=== PATIENT | female | born 1970 | race Caucasian/White ===

== ENCOUNTER → 2017-04-02 | Outpatient (CLI) | payer OTHER ==
[~2017-04-02] MED LIST: ALEVE220 M1 PO; APAP500; DOXYCYCLINE 10100 MG PO; IBUPROFEN 600600 M1 PO; INDERAL LA60 M1 PO; LORTUSS EX PO; MELATONIN3 MG PO; ONDANSETRON HCL4 M2 SUBLING; PREDNISONE 20 M20 M1 PO; PROAIR HFA8.5 GM; PROMETHAZINE/C118 ML; PROZAC20 MG PO; RANITIDINE 150150 M1 PO; SENOKOT-S1 TA1 PO; ZANTAC 150MG T150 MG PO; ZPAK; ZYRTEC10 MG PO
== END ==
LOC: RAD 13:22
DX: Z12.31 Encounter for screening mammogram for malignant neoplasm of breast (principal)

== ENCOUNTER 2017-05-08 13:55 | Emergency (ER) | payer OTHER ==
[~2017-05-08] VITALS: Ht 160 cm; Wt 97.5 kg
[2017-05-08] MEDS ORDERED: NAPROSYN500 MG PO (15:29)
[2017-05-08] MEDS ORDERED: HYDROCODONE-AP1 EAC6 PO (15:29)
[2017-05-08 15:37] VITALS: BP 122/78
[2017-11-07] MEDS ORDERED: MOBIC15 MG PO (14:59)
[2017-11-07] MEDS ORDERED: NAPROSYN500 MG PO (14:59)
[2017-11-07] MEDS ORDERED: PROZAC40 MG PO (14:59)
[2017-11-07] MEDS ORDERED: MULTI VITAMIN1 EACH PO (15:00)
[2017-11-07] MEDS ORDERED: VITAMIN D31000 UNI2 PO (15:00)
[2017-11-07] MEDS ORDERED: ESTRADIOL TRAN1 EAC2 TRANSDERM (15:00)
[2017-11-07] MEDS ORDERED: PRILOSEC 20 MG20 MG PO (15:01)
== END 2017-05-08 15:38 | disposition home or self-care (01) ==
LOC: ER 13:55
DX: K08.89 Other specified disorders of teeth and supporting structures (principal); F41.9 Anxiety disorder, unspecified; F32.9 Major depressive disorder, single episode, unspecified; K21.9 Gastro-esophageal reflux disease without esophagitis; Z98.890 Other specified postprocedural states

== ENCOUNTER → 2017-11-10 | Outpatient (CLI) | payer OTHER ==
[~2017-11-10] VITALS: Ht 162.6 cm; Wt 93.0 kg
[~2017-11-10] MED LIST changes: +ESTRADIOL TRAN1 EAC2 TRANSDERM; +HYDROCODONE-AP1 EAC6 PO; +MOBIC15 MG PO; +MULTI VITAMIN1 EACH PO; +NAPROSYN500 MG PO; +PRILOSEC 20 MG20 MG PO; +PROZAC40 MG PO; +VITAMIN D31000 UNI2 PO
--- NOTE | ~2017-11-10 | PATH ---
[facility] [place] [address] PATHOLOGY RPT PROCEDURE Name: MEGHANA TOWNSEND Room #: REG [facility] Betty.#: [id number] Admission: 11/10/17 Date of : 66 Discharge: Report #: [id number] Path Case #: [id number] [facility] Accession Number: [id number] . 01 Material submitted: . PART A: BX OF DUODENUM PART B: GASTRIC BX . 01 Clinical history: . Nausea, esophagitis . 02 Diagnosis: A. Bx of duodenum, rule out sprue: - Small bowel mucosa with intact villous architecture and no increase in intraepithelial lymphocytes. . B. Gastric biopsy, rule out H. pylori: - Mild chronic inactive gastritis. - An H. pylori immunostain is negative (block B1; appropriately reactive control). - Separate fragments of unremarkable small bowel mucosa. - See comment. LBQ/11/12/2017 . 02 Comment: B. Separate isolated fragments of small bowel mucosa are present. This small bowel mucosa likely represents contamination from part A duodenal biopsy. Clinical correlation is recommended. (MAP/db; 11/12/2017) . 02 Electronically signed: . Eduardo Skinner MD, Pathologist NPI- [id number] . 01 Gross description: . A. Received in formalin labeled "Meghana Townsend, BX of duodenum, rule out sprue," are 4 segments of bender soft tissue measuring 0.9 x 0.7 x 0.2 cm in aggregate dimensions and ranging from 0.2 to 0.3 cm in maximum dimension. The specimen is submitted entirely in cassette A1. . B. Received in formalin labeled "Meghana Townsend, gastric BX, rule out H. pylori," are 4 segments of bender soft tissue measuring 0.9 x 0.8 x 0.2 cm in aggregate dimensions and ranging from 0.2 to 0.4 cm in maximum dimension. The specimen is submitted entirely in cassette B1. (TSD; 11/10/2017) TOB/TOB . 02 [place] [address] PATHOLOGY RPT PROCEDURE Name: MEGHANA TOWNSEND Room #: REG [facility].#: [id number] Admission: 11/10/17 Date of : 66 Discharge: Report #: [id number] Path Case #: [id number] Pathologist provided ICD-10: K29.50, R11.0 . 02 CPT . 488766, 305168, Q75709 Performed at: [address] [facility], [place], [place] [id number] MD Maurizio Kimball MD Phone: [phone] Performed at: 02 [facility] [id number] [place] [id number] MD Edda Almanzar MD Phone: [phone]
--- NOTE | ~2017-11-10 | P ---
[facility] [place] [address] PROCEDURE REPORT Name: MEGHANA OJEDA Room #: REG [facility].#: [id number] Admission: 11/10/17 Attend Phys: Oswald Hunt Discharge: Date of : 66 Report #: [id number] THIS REPORT FOR: //name// CC: Carroll Main MD DATE OF SERVICE: 11/10/2017 PROCEDURE PERFORMED: Upper endoscopy with biopsies. HISTORY OF PRESENT ILLNESS: The patient is a 47-year-old female with complaints of chronic nausea. This was beginning in August 2017. She denies any new medications. She has had a previous gastric sleeve surgery in 2013. She takes Mobic on a regular basis, also on Prilosec daily 20 mg and Zantac p.r.n. She does have intermittent heartburn symptoms. She denies any dysphagia. She denies any blood in her stools. Plan is for upper endoscopy. PROCEDURE: The risks and benefits of the procedure were explained to the patient, those risks including, but not limited to bleeding, perforation, and the risk of sedation. She understood these risks and gave informed consent. Sedation was given using propofol per anesthesia. Next, using a standard Olympus upper endoscope, the scope was placed in the patient's mouth and advanced under direct vision through the esophagus, stomach and into the second portion of the duodenum. The larynx was normal in appearance. The upper and mid esophagus was normal. Grade B erosive esophagitis was noted at the GE junction. Upon entering the stomach, surgical changes consistent with gastric sleeve were noted. There were no ulcerations or erosions. The gastric antrum was normal. Biopsies were obtained to rule out H. pylori. The pylorus was normal and patent. The duodenal bulb, first and second portion were all normal. Biopsies were also obtained to rule out the possibility of celiac sprue. The scope was then withdrawn and the procedure terminated. The patient tolerated the procedure well. IMPRESSION: 1. Surgical changes consistent with gastric sleeve. 2. Grade B erosive esophagitis. 3. Otherwise, normal upper endoscopy. RECOMMENDATIONS: 1. Await biopsy results. 2. The patient has grade B erosive esophagitis despite being on daily Prilosec. We would recommend b.i.d. therapy. 3. If biopsies are negative and there is no improvement on b.i.d. PPI therapy, [address] [address] PROCEDURE REPORT Name: MEGHANA OJEDA Room #: REG [facility]al#: [id number] Admission: 11/10/17 Attend Phys: Oswald Hunt Discharge: Date of : 66 Report #: [id number] we discussed proceeding with a gastric emptying study. Thank you for allowing me to participate in her care. <ELECTRONICALLY SIGNED> By: Oswald Duran MD 11/14/17 0830 1008 1601 Oswald Duran MD /paulino
== END | disposition home or self-care (01) ==
LOC: GI 07:49
DX: K29.50 Unspecified chronic gastritis without bleeding (principal); K22.10 Ulcer of esophagus without bleeding; G43.909 Migraine, unspecified, not intractable, without status migrainosus; F32.9 Major depressive disorder, single episode, unspecified; K21.9 Gastro-esophageal reflux disease without esophagitis; Z98.890 Other specified postprocedural states; Z90.710 Acquired absence of both cervix and uterus; Z98.84 Bariatric surgery status; Z79.899 Other long term (current) drug therapy
CPT/HCPCS: 62110; 62900

== ENCOUNTER 2019-01-30 03:33 | Emergency (ER) | payer BC ==
[~2019-01-30] VITALS: Ht 162.6 cm; Wt 99.8 kg
[2019-01-30 04:08] LABS: ABSOLUTE NEUTROPHILS 2.5 thou/uL (1.4-8.2); BASOPHILS 0.8 % (0.0-2.0); EOSINOPHILS 4.8 % (0.0-3.0); HEMATOCRIT 41.7 % (37.0-47.0); HEMOGLOBIN 13.8 gm/dL (12.0-15.0); LYMPHOCYTES 36.8 % (24.0-44.0); MCH 31.4 pg (26.0-34.0); MCHC 33.2 g/dL (28.0-37.0); MCV 94.7 fL (80.0-100.0); MONOCYTES 10.1 % (1.0-8.0); PLATELET COUNT 270 thou/uL (150-400); POLYS 47.5 % (36.0-66.0); RDW 12.7 % (10.5-14.5); WBC 5.4 thou/uL (4.0-11.0)
[2019-01-30 04:13] LABS: ANION GAP 8 mmol/L (7-16); BUN 11 mg/dL (7-18); CALCIUM 8.9 mg/dL (8.5-10.1); CHLORIDE 103 mmol/L (98-107); CO2 28 mmol/L (21-32); GLUCOSE 122 mg/dL (74-106); POTASSIUM 3.7 mmol/L (3.5-5.1); SODIUM 139 mmol/L (136-145)
[2019-01-30 04:22] LABS: TROPONIN-I <0.06 ng/mL (<0.06)
[2019-01-30] MEDS ORDERED: NORCO 5-325 TA1 EAC1 PO (05:00)
[2019-01-30] MEDS ORDERED: PROTONIX40 MG PO (05:00)
[2019-01-30] MEDS ORDERED: CARAFATE1 GM/10 ML PO (05:00)
[2019-01-30] MEDS ORDERED: ZOFRAN ODT4 MG PO (05:00)
[2019-01-30 05:26] VITALS: BP 115/70
--- NOTE | 2019-01-30 11:58 | EKG ---
[place] [address] [place] [address] ELECTROCARDIOGRAM REPORT Name: MEGHANA OJEDA Room #: DEP [facility]#: [id number] ������������������ Admission: 01/30/19 ������������������ Attend Phys: Discharge: 01/30/19 ������������������ Date of : 66 Report #: [id number] ����������������������������������������������������������������� [id number] THIS REPORT FOR: //name// [facility] ED Test Date: 2019-01-30 Test Time: 03:43:24 Pat Name: MEGHANA OJEDA Department: Room: Gender: F Protective Services Social Worker: ADELAIDA : 1970 Requested By: Oskar Mullins Order Number: [id number] MD: Ramiro Carson Measurements Intervals [place] Rate: 71 P: 54 NH: 152 QRS: 18 QRSD: 88 T: 35 QT: 414 QTc: 450 Interpretive Statements Sinus rhythm Abnormal R-wave progression, early transition Compared to ECG 09/20/2013 12:13:42 No significant change was found Electronically Signed On 01-30-2019 11:58:10 CDT by Ramiro Carson [email or web address] ��������������������������������������������� <ELECTRONICALLY SIGNED> ���������������������������������������� By: Ramiro Carson MD, [facility] ��������������������������������������������� 01/30/19 1158 [id number] Ramiro Carson MD, FACC /EPI
== END 2019-01-30 05:26 | disposition home or self-care (01) ==
LOC: ER 03:33
PROVIDERS: Emergency Medicine
DX: R07.89 Other chest pain (principal); G43.909 Migraine, unspecified, not intractable, without status migrainosus; K21.9 Gastro-esophageal reflux disease without esophagitis; F32.9 Major depressive disorder, single episode, unspecified; G47.30 Sleep apnea, unspecified; Z98.84 Bariatric surgery status; Z90.710 Acquired absence of both cervix and uterus; Z98.890 Other specified postprocedural states

== ENCOUNTER → 2020-01-31 | Outpatient (CLI) | payer OTHER ==
[~2020-01-31] MED LIST changes: +CARAFATE1 GM/10 ML PO; +NORCO 5-325 TA1 EAC1 PO; +PROTONIX40 MG PO; +ZOFRAN ODT4 MG PO
[2020-02-01 01:06] LABS: GLYCOHEMOGLOBIN (HGB A1C) 5.7 % (4.8-5.6)
== END ==
LOC: LABMALL 09:18
PROVIDERS: ATTEND Nurse Practitioner
DX: Z00.00 Encounter for general adult medical examination without abnormal findings (principal)

== ENCOUNTER → 2020-03-02 | Outpatient (CLI) | payer OTHER | LOC: RAD 13:26 | PROVIDERS: ATTEND Nurse Practitioner | DX: Z12.31 Encounter for screening mammogram for malignant neoplasm of breast (principal) ==

== ENCOUNTER 2020-10-28 18:31 | Emergency (ER) | payer OTHER ==
[~2020-10-28] VITALS: Ht 162.6 cm; Wt 104.3 kg
[2020-10-28 18:33] VITALS: BP 130/88
[2020-10-28 18:46] LABS: URINE BILIRUBIN NEGATIVE (Negative); URINE BLOOD NEGATIVE (Negative); URINE CLARITY CLEAR; URINE COLOR YELLOW; URINE GLUCOSE-RANDOM* NEGATIVE (Negative); URINE KETONES NEGATIVE (Negative); URINE NITRITE-REFLEX NEGATIVE (Negative); URINE PROTEIN (DIPSTICK) NEGATIVE (Negative); URINE SPECIFIC GRAVITY <= 1.005 (1.005-1.035); URINE UROBILINOGEN 0.2 E.U./dl (0.2-1.0)
[2020-10-28 18:48] LABS: URINE LEUKOCYTES-REFLEX 1+ (Negative)
[2020-10-28 18:57] LABS: SQUAMOUS 4-10 Moderate /LPF (0-3); URINE RBC None Seen /HPF (NONE SEEN); URINE WBC-REFLEX 0-5 Rare /HPF (0-5)
[2020-10-28 18:58] LABS: BACTERIA-REFLEX 1-9 Few /HPF (None Seen); CASTS None Seen /LPF (None Seen); CRYSTALS None Seen /LPF (None Seen)
[2020-10-28] MEDS ORDERED: PREDNISONE 20 M20 MG PO (19:35)
[2020-10-28] MEDS ORDERED: ZANAFLEX4 MG PO (19:35)
[2020-10-28] MEDS ORDERED: ULTRAM 50MG TAB50 MG PO (19:35)
== END 2020-10-28 19:27 | disposition home or self-care (01) ==
LOC: ER 18:31
PROVIDERS: Nurse Practitioner
DX: M54.5 Low back pain (principal); K21.9 Gastro-esophageal reflux disease without esophagitis; G43.909 Migraine, unspecified, not intractable, without status migrainosus; F32.9 Major depressive disorder, single episode, unspecified; Z90.711 Acquired absence of uterus with remaining cervical stump; Z98.84 Bariatric surgery status; Z79.899 Other long term (current) drug therapy

== ENCOUNTER 2020-12-15 10:40 | Emergency (ER) | payer OTHER ==
[~2020-12-15] VITALS: Ht 162.6 cm; Wt 108.0 kg
[~2020-12-15 10:40] MED LIST changes: +PREDNISONE 20 M20 MG PO; +ULTRAM 50MG TAB50 MG PO; +ZANAFLEX4 MG PO
[2020-12-15] MEDS ORDERED: TRAZODONE HCL50 MG PO (10:51)
== END 2020-12-15 11:51 | disposition home or self-care (01) ==
LOC: ER 10:40
DX: U07.1 COVID-19 (principal); K21.9 Gastro-esophageal reflux disease without esophagitis; G43.909 Migraine, unspecified, not intractable, without status migrainosus; F32.9 Major depressive disorder, single episode, unspecified; Z90.710 Acquired absence of both cervix and uterus; Z79.899 Other long term (current) drug therapy

== ENCOUNTER → 2021-01-01 | Outpatient (CLI) | payer OTHER ==
[~2021-01-01] MED LIST changes: +TRAZODONE HCL50 MG PO
[2021-01-01 11:00] LABS: ABSOLUTE NEUTROPHILS 2.6 thou/uL (1.4-8.2); HEMATOCRIT 41.9 % (37.0-47.0); HEMOGLOBIN 14.4 gm/dL (12.0-15.0); LYMPHOCYTES 33.3 % (24.0-44.0); MCH 32.9 pg (26.0-34.0); MCHC 34.3 g/dL (28.0-37.0); MCV 95.9 fL (80.0-100.0); MONOCYTES 9.4 % (1.0-8.0); PLATELET COUNT 312 thou/uL (150-400); POLYS 52.3 % (36.0-66.0); RBC 4.37 mil/uL (4.20-5.00); RDW 12.1 % (10.5-14.5)
[2021-01-01 12:36] LABS: ALBUMIN 3.7 g/dL (3.4-5.0); ANION GAP 9 mmol/L (7-16); BUN 13 mg/dL (7-18); CALCIUM 9.1 mg/dL (8.5-10.1); CHLORIDE 104 mmol/L (98-107); CHOLESTEROL 252 mg/dL (<200); CO2 28 mmol/L (21-32); CREATININE 1.1 mg/dL (0.6-1.0); GLUCOSE 105 mg/dL (74-106); HDL CHOLESTEROL 47 mg/dL (>40); LDL CHOLESTEROL 172 mg/dL (<100); POTASSIUM 4.4 mmol/L (3.5-5.1); SGOT 30 U/L (15-37); SGPT 34 U/L (30-65); SODIUM 141 mmol/L (136-145); TC:HDL 5.4 Ratio (Not establshd); TOTAL BILIRUBIN 0.5 mg/dL (0.2-1.0); TOTAL PROTEIN 7.2 g/dL (6.4-8.2); TRIGLYCERIDE 166 mg/dL (<150); VLDL 33 mg/dL (<40)
[2021-01-02 03:06] LABS: GLYCOHEMOGLOBIN (HGB A1C) 11.8 % (4.8-5.6)
== END ==
LOC: LAB 10:24
PROVIDERS: ATTEND Nurse Practitioner
DX: Z00.00 Encounter for general adult medical examination without abnormal findings (principal)

== ENCOUNTER → 2021-02-28 | Outpatient (CLI) | payer OTHER | LOC: BC 14:24 | PROVIDERS: ATTEND Nurse Practitioner | DX: Z12.31 Encounter for screening mammogram for malignant neoplasm of breast (principal) ==

== ENCOUNTER → 2021-05-29 | Outpatient (CLI) | payer OTHER ==
[2021-05-29 08:53] LABS: BASOPHILS 0.5 % (0.0-2.0); EOSINOPHILS 4.9 % (0.0-3.0); HEMOGLOBIN 13.8 gm/dL (12.0-15.0); LYMPHOCYTES 30.5 % (24.0-44.0); MCH 32.2 pg (26.0-34.0); MCHC 32.8 g/dL (28.0-37.0); MCV 98.1 fL (80.0-100.0); MONOCYTES 8.1 % (1.0-8.0); PLATELET COUNT 297 thou/uL (150-400); RBC 4.28 mil/uL (4.20-5.00); RDW 12.1 % (10.5-14.5); WBC 5.3 thou/uL (4.0-11.0)
[2021-05-29 09:08] LABS: ALBUMIN 4.3 g/dL (3.4-5.0); ANION GAP 10 mmol/L (7-16); BUN 10 mg/dL (7-18); CALCIUM 10.1 mg/dL (8.5-10.1); CHLORIDE 102 mmol/L (98-107); CHOLESTEROL 157 mg/dL (<200); CO2 28 mmol/L (21-32); CREATININE 0.9 mg/dL (0.6-1.0); GLUCOSE 104 mg/dL (74-106); HDL CHOLESTEROL 58 mg/dL (>40); LDL CHOLESTEROL 74 mg/dL (<100); POTASSIUM 4.8 mmol/L (3.5-5.1); SGOT 24 U/L (15-37); SGPT 30 U/L (30-65); SODIUM 140 mmol/L (136-145); TC:HDL 2.7 Ratio (Not establshd); TOTAL BILIRUBIN 0.4 mg/dL (0.2-1.0); TOTAL PROTEIN 7.8 g/dL (6.4-8.2); TRIGLYCERIDE 128 mg/dL (<150); VLDL 26 mg/dL (<40)
[2021-05-30 02:06] LABS: GLYCOHEMOGLOBIN (HGB A1C) 5.4 % (4.8-5.6)
== END ==
LOC: LAB 08:02
PROVIDERS: ATTEND Nurse Practitioner
DX: E11.9 Type 2 diabetes mellitus without complications (principal)